=== PATIENT | male | born 1975 | race Caucasian/White ===

== ENCOUNTER → 2020-09-01 13:37 | Outpatient (CLI) | payer OTHER, SELFPAY ==
--- NOTE | 2020-09-01 13:39 | DI.RAD.S_ITS ---
PROCEDURE: XR KNEE RT 3V INDICATIONS: knee pain/swelling, r/o bony abnormality TECHNIQUE: 3 views of the knee were acquired. COMPARISON: None. FINDINGS: Bones: No fractures or dislocations. No suspicious bony lesions. Soft tissues: Large joint effusion. No suspicious soft tissue calcifications. IMPRESSION: No acute osseous abnormality. Large joint effusion. Dictated by: Nolan Iraheta M.D. on 09/01/2020 at 13:06 Approved by: Nolan Iraheta M.D. on 09/01/2020 at 13:07
== END ==
PROVIDERS: PCP Family Medicine; Referring Provider Physician Assistant; Visit Provider Physician Assistant
DX: M25.561 Pain in right knee (principal); M25.461 Effusion, right knee
CPT/HCPCS: 73562

== ENCOUNTER → 2020-09-08 13:01 | Outpatient (CLI) | payer OTHER, SELFPAY ==
[2020-09-08 14:19] LABS: Erythrocyte Sedimentation Rate 38 MM/HR (0-15)
[2020-09-08 14:52] LABS: Alanine Aminotransferase 63 IU/L (<50); Albumin 4.5 g/dL (3.5-5.0); Albumin Globulin Ratio 1.5 (1.0-2.8); Alkaline Phosphatase 69 U/L (38-126); Aspartate Aminotransferase 38 IU/L (17-59); BUN Creatinine Ratio 16.9 (6-22); Bilirubin Total 0.4 mg/dL (0.2-1.3); Blood Urea Nitrogen 12 mg/dL (9-20); Carbon Dioxide 25 mmol/L (22-32); Chloride 105 mmol/L (98-107); Estimated Glomerular Filt Rate > 60.0 mL/min (>60); Glucose 105 mg/dL (70-100); HEMOLYSIS < 15 (0-50); Potassium 4.7 mmol/L (3.4-5.1); Sodium 138 mmol/L (137-145); Total Protein 7.5 g/dL (6.3-8.2); Uric Acid 6.8 mg/dL (3.5-8.5)
== END ==
PROVIDERS: PCP Family Medicine; Referring Provider Family Medicine; Visit Provider Family Medicine
DX: I10 Essential (primary) hypertension (principal); M25.461 Effusion, right knee; M25.561 Pain in right knee
CPT/HCPCS: 36415; 80053; 84550; 85651

== ENCOUNTER → 2025-08-05 17:08 | Outpatient (CLI) | payer OTHER, SELFPAY ==
[2025-08-05 18:18] LABS: Add Manual Diff / Slide Review NO; Hematocrit 41.9 % (41-53); Hemoglobin 14.5 g/dL (13.5-17.5); Lymphocytes Absolute Auto 2300 /uL (1100-4500); Mean Corpuscular HGB Conc 34.5 % (30-36); Mean Corpuscular Hemoglobin 31.6 PG (26-34); Mean Corpuscular Volume 91.5 fL (80-100); Platelet Count 202 X10^3/uL (150-400)
[2025-08-05 18:21] LABS: Hemoglobin A1C% w Est Avg Glu 6.7 % (4.0-6.0)
[2025-08-05 19:03] LABS: HEMOLYSIS < 15 (0-50)
[2025-08-05 19:08] LABS: Alanine Aminotransferase 99 IU/L (<50); Albumin 4.7 g/dL (3.5-5.0); Albumin Globulin Ratio 1.6 (1.0-2.8); Alkaline Phosphatase 81 U/L (38-126); Blood Urea Nitrogen 12 mg/dL (9-20); Calcium 9.6 mg/dL (8.4-10.2); Carbon Dioxide 22 mmol/L (22-32); Chloride 104 mmol/L (98-107); Cholesterol 216 mg/dL (140-199); Estimated Glomerular Filt Rate > 60 mL/min (>60); Globulin 3.0 g/dL (1.7-4.1); Glucose 123 mg/dL (70-99); HDL Cholesterol 47 mg/dL (40-60); Potassium 4.4 mmol/L (3.4-5.1); Sodium 137 mmol/L (137-145); Total Protein 7.7 g/dL (6.3-8.2); Triglycerides 322 mg/dL (35-150); Uric Acid 5.1 mg/dL (3.5-8.5)
[2025-08-05 19:23] LABS: TSH w/ Reflex to FT4 4.17 uIU/mL (0.47-4.68)
[2025-08-05 20:32] LABS: Prostate Specific Antigen 0.682 ng/mL (0.10-4.00)
== END ==
PROVIDERS: PCP Family Medicine; Referring Provider Family Medicine; Visit Provider Family Medicine
DX: M1A.9XX0 Chronic gout, unspecified, without tophus (tophi) (principal); I10 Essential (primary) hypertension; E11.9 Type 2 diabetes mellitus without complications; E66.01 Morbid (severe) obesity due to excess calories
CPT/HCPCS: 36415; 80053; 80061; 83036; 84153; 84443; 84550; 85025